=== PATIENT | male | born 1985 | race Caucasian/White ===

== ENCOUNTER → 2018-03-27 | Outpatient (CLI) | payer BC ==
--- NOTE | 2018-03-27 10:33 | FL ---
ESOPHOGRAM. HISTORY: Dysphagia Esophagram was performed per the air contrast technique. The patient swallowed barium and effervesce nt crystals without difficulty or delay. Esophageal peristalsis and motility appear to be within normal limits. There is no evidence for filling defect, mass or diverticulum. No hiatal hernia seen. Subsequently single contrast cervical esophagram was performed which fails demonstrate evidence for a spiration penetration or mass. IMPRESSION: Unremarkable study.
== END ==
LOC: RADFLWHC 08:39
PROVIDERS: ATTEND Otolaryngology
DX: R13.10 Dysphagia, unspecified (principal)
CPT/HCPCS: 74220

== ENCOUNTER 2018-04-10 08:05 | Day surgery (SDC) | payer BC ==
[2018-04-09 10:26] VITALS: BMI 37.3
[~2018-04-10 08:05] MED LIST: LIDOCAINE 1% 20 ML VIAL (10MG/ML) FOR IV START INTRADERMA PRN
[2018-04-10 09:17] VITALS: TEMP 98.3
[2018-04-10] MEDS: LACTATED RINGERS 1,000 ML IV SCH ×2 (09:27→10:48)
[2018-04-10] MEDS ORDERED: PROPOFOL 10 MG/ML 20 ML VIAL IV ONE (10:46)
--- NOTE | 2018-04-10 11:17 | P.PCN ---
Date of Procedure: 04/10/18 Procedure(s) Performed: Procedure: Esophagogastroduodenoscopy and biopsy. Preoperative diagnosis: Dysphagia. Postoperative diagnosis: 1. Sliding hiatal hernia with evidence of esophagitis, multiple biopsies obtained to rule out eosinophilic esophagitis. 2. Mild gastritis and duodenitis. 3. Multiple biopsies obtained from the duodenum and antrum. Preparation and sedation: Was provided by anesthesia. Brief clinical history: The patient is a 32-year-old male who is scheduled for this evaluation because of chronic dysphagia. He denies acid reflux and he has no chest pains. No bleeding or weight loss. He is not on any acid suppressive therapy at this time. Procedure: With the patient on his left lateral decubitus position and after informed consent and adequate sedation, I passed the Olympus-GIF 160 video upper endoscope through the cricopharyngeus down the esophagus. GE junction was around 40 cm from the incisors and there was 1-2 cm sliding hiatal hernia. The esophagus showed mild corrugations and superficial linear erosions raising the possibility of reflux esophagitis versus eosinophilic esophagitis. There were no strictures. No [place]'s esophagus. The endoscope was then passed into the stomach which was insufflated with air and inspected in detail including the retroflex view in the cardia. There was some mottling and erythema in the antrum but no ulcers or erosions. Pyloric channel did not show any ulcers. Duodenal bulb, post bulbar area and descending duodenum showed minimal mottling and erythema with no ulcers or bleeding. I obtained biopsies from the duodenum, antrum and esophagus before the endoscope was withdrawn. The patient tolerated the procedure well. Plan: The patient was reassured. Will await biopsy results. He Will follow-up in the office and I will keep you updated on his progress. He will follow up with you as planned.
[2018-04-10 11:27] VITALS: BP 110/67; PULSE 67; RESP 18
== END 2018-04-10 11:59 | disposition home or self-care (01) ==
LOC: ORWHC2ENDO 08:05
DX: K29.50 Unspecified chronic gastritis without bleeding (principal); K29.80 Duodenitis without bleeding; K44.9 Diaphragmatic hernia without obstruction or gangrene; I10 Essential (primary) hypertension; K21.0 Gastro-esophageal reflux disease with esophagitis; Z79.899 Other long term (current) drug therapy
CPT/HCPCS: 88305; 43239; J2704

== ENCOUNTER → 2018-06-11 | Outpatient (CLI) | payer BC ==
--- NOTE | 2018-06-11 15:06 | XR ---
EXAMINATION TYPE: XR lumbar spine 2 or 3V DATE OF EXAM: 06/11/2018 CLINICAL HISTORY: Chronic low back pain TECHNIQUE: Frontal and lateral images of the lumbar spine are obtained. COMPARISON: None FINDINGS: There are 5 lumbar type vertebral bodies identified. The lumbar spine shows satisfactory alignment without evidence of acute fracture or dislocation. Vertebral body heights are within normal limits. There is mild disc space narrowing L4-L5 and L5-S1 levels. The overlying soft tissue appear s unremarkable. IMPRESSION: As above.
== END | disposition home or self-care (01) ==
LOC: RADXRMAIN 14:37
PROVIDERS: ATTEND Family Medicine
DX: M48.07 Spinal stenosis, lumbosacral region (principal)
CPT/HCPCS: 72100

== ENCOUNTER 2018-06-13 11:07 | Observation (INO) | payer BC ==
[2018-06-13] MEDS ORDERED: methylPREDNISolone SOD SUCCI 125 MG/2 ML VIAL IV STA (12:05)
[2018-06-13] MEDS ORDERED: KETOROLAC 30 MG/ML 1 ML VIAL IVP STA (12:06)
[2018-06-13] MEDS ORDERED: ORPHENADRINE 30 MG/ML 2 ML VIAL IVP STA (12:06)
--- NOTE | 2018-06-13 12:12 | ED ---
Back Pain HPI - General Chief Complaint: Back Pain/Injury Stated Complaint: back injury Time Seen by Provider: 06/13/18 11:37 Source: patient, RN notes reviewed - History of Present Illness Initial Comments: This is a 32-year-old male with a history of lumbar disc disease for about the last year secondary to an injury while swinging a golf club who states he's been doing physical therapy but over last 4 days she's had increased pain with today being the worse she states is burning pain that goes down both legs mostly in the left however he states when he got this morning he had numbness of both legs but no urinary or fecal incontinence. He states he can walk but when he is upright for a short period time he has increased pain. He does state that he had recently started doing loadbearing in his physical therapy may be when everything started. He does have an MRI scheduled in the near future he does not recall what date. He does not recall anything new coughing sneezing bending stretching or other modifying factors at may have triggered this. MD Complaint: back pain - Related Data Home Medications Medication Instructions Recorded Confirmed Fexofenadine HCl [Nu Allergy] 180 mg PO DAILY 04/09/18 06/13/18 Metoprolol Tartrate [Lopressor] 50 mg PO HS 04/09/18 06/13/18 Metoprolol Tartrate [Lopressor] 100 mg PO DAILY 04/09/18 06/13/18 Pantoprazole Sodium 40 mg PO BID 06/13/18 06/13/18 methylPREDNISolone [Medrol Dose See Taper PO DIRECTED 06/13/18 06/13/18 Pack] Allergies Allergy/AdvReac Type Severity Reaction Status Date / Time soy Allergy Unknown Verified 06/13/18 12:25 wheat Allergy Unknown Verified 06/13/18 12:25 Review of Systems ROS Statement: Those systems with pertinent positive or pertinent negative responses have been documented in the HPI. ROS Other: All systems not noted in ROS Statement are negative. Past Medical History Past Medical History: GERD/Reflux, Hypertension Additional Past Medical History / Comment(s): OCCASIONAL TACHYCARDIA , TROUBLE SWALLOWING, Herniated Disk History of Any Multi-Drug Resistant Organisms: None Reported Past Surgical History: No Surgical Hx Reported Past Anesthesia/Blood Transfusion Reactions: No Reported Reaction Additional Past Anesthesia/Blood Transfusion Reaction / Comment(s): FIRST ANESTHETIC Past Psychological History: No Psychological Hx Reported Smoking Status: Never smoker Past Alcohol Use History: None Reported Past Drug Use History: None Reported - Past Family History Mother Family Medical History: Cancer Additional Family Medical History / Comment(s): SKIN CANCER Father Family Medical History: Cancer, Deep Vein Thrombosis (DVT) Additional Family Medical History / Comment(s): SKIN CANCER , General Exam - General Exam Comments Initial Comments: This a well-developed well-nourished awake alert oriented 3 male General appearance: alert, anxious, in distress Head exam: Present: atraumatic, normocephalic, normal inspection Eye exam: Present: normal appearance, PERRL, EOMI. Absent: scleral icterus, conjunctival injection, periorbital swelling ENT exam: Present: normal exam, mucous membranes moist Neck exam: Present: normal inspection. Absent: tenderness, meningismus, lymphadenopathy Respiratory exam: Present: normal lung sounds bilaterally. Absent: respiratory distress, wheezes, rales, rhonchi, stridor Cardiovascular Exam: Present: regular rate, normal rhythm, normal heart sounds. Absent: systolic murmur, diastolic murmur, rubs, gallop, clicks GI/Abdominal exam: Present: soft, normal bowel sounds. Absent: distended, tenderness, guarding, rebound, rigid, bruit, pulsatile mass Extremities exam: Present: normal inspection, full ROM, normal capillary refill. Absent: tenderness, pedal edema, joint swelling, calf tenderness Back exam: Present: normal inspection, tenderness, paraspinal tenderness, other (Tennis over the left SI joint and over both superior gluteus muscles at the sciatic outlet.). Absent: full ROM, CVA tenderness (R), CVA tenderness (L), vertebral tenderness, rash noted Neurological exam: Present: alert, oriented X3, CN II-XII intact. Absent: motor sensory deficit Psychiatric exam: Present: normal affect, normal mood Skin exam: Present: warm, dry, intact, normal color. Absent: rash Course Vital Signs 06/13/18 06/13/18 11:18 13:55 Temperature 97.7 F 97.0 F L Pulse Rate 84 60 Respiratory 20 18 Rate Blood Pressure 161/102 115/69 O2 Sat by Pulse 99 98 Oximetry Medical Decision Making - Medical Decision Making I did reevaluate patient on multiple occasions he is getting so see minimal relief in his pain when he tries get up right in a horizontal position he feels improved but a upright position he has severe pain I did discuss the case with him and his family and with Dr. Madera patient will be admitted with rectal spine consultation. - Lab Data Result diagrams: 06/13/18 12:05 Lab Results 06/13/18 Range/Units 12:05 Sodium 141 (137-145) mmol/L Potassium 4.6 (3.5-5.1) mmol/L Chloride 106 (98-107) mmol/L Carbon Dioxide 26 (22-30) mmol/L Anion Gap 9 mmol/L BUN 17 (9-20) mg/dL Creatinine 0.80 (0.66-1.25) mg/dL Est GFR (CKD-EPI)AfAm >90 (>60 ml/min/1.73 sqM) Est GFR (CKD-EPI)NonAf >90 (>60 ml/min/1.73 sqM) Glucose 111 H (74-99) mg/dL Calcium 9.6 (8.4-10.2) mg/dL Magnesium 2.1 (1.6-2.3) mg/dL Total Bilirubin 0.6 (0.2-1.3) mg/dL AST 37 (17-59) U/L ALT 67 (21-72) U/L Alkaline Phosphatase 44 (38-126) U/L Total Protein 7.6 (6.3-8.2) g/dL Albumin 4.5 (3.5-5.0) g/dL - Radiology Data Radiology results: report reviewed (I did review the imaging and report patient does demonstrate a CAT scan large central disc calcification at L4 5 severe compression of the thecal sac appears partially calcified likely nerve root impingement also large left paracentral disc herniation at L5 to S1 severe compression of the thecal sac probable nerve root impingement), image reviewed Disposition Clinical Impression: Mechanical back pain, Degeneration of intervertebral disc, Failure of outpatient treatment Disposition: ADMITTED IP TO THIS [facility] Condition: Stable Referrals: Etienne Davis MD [Primary Care Provider] - 1-2 days
[2018-06-13 12:39] LABS: ALT 67 U/L (21-72); AST 37 U/L (17-59); Albumin 4.5 g/dL (3.5-5.0); Alkaline Phosphatase 44 U/L (38-126); Anion Gap 9 mmol/L; Blood Urea Nitrogen 17 mg/dL (9-20); Calcium 9.6 mg/dL (8.4-10.2); Carbon Dioxide 26 mmol/L (22-30); Chloride 106 mmol/L (98-107); Glucose 111 mg/dL (74-99); Magnesium 2.1 mg/dL (1.6-2.3); Potassium 4.6 mmol/L (3.5-5.1); Sodium 141 mmol/L (137-145); Total Bilirubin 0.6 mg/dL (0.2-1.3); Total Protein 7.6 g/dL (6.3-8.2)
--- NOTE | 2018-06-13 14:01 | CT ---
EXAMINATION TYPE: CT lumbar spine wo con DATE OF EXAM: 06/13/2018 1:32 PM COMPARISON: Lower back pain HISTORY: Lower back pain worsening after physiotherapy. CT DLP: 1262 mGycm Automated exposure control for dose reduction was used. Unenhanced CT of the lumbar spine was performed. Bone and soft tissue window settings are submitted as well as coronal and sagittal reconstructions. L1-L2: Normal disc space height. No disc herniation protrusion or central stenosis. No facet joint arthropathy. No evidence for foraminal encroachment. L2-L3: Normal disc space height. No disc herniation protrusion or central stenosis. No facet joint arthropathy. No evidence for foraminal encroachment. L3-L4: Mild central disc bulging. L4-L5: There is a very large central disc herniation L4-L5 with severe compression of the thecal sac and probable bilateral foraminal encroachment. Appears partially calcified and has a disc osteophyte complex. Severe central stenosis and bilateral foraminal encroachment. Recommend MRI. L5-S1: There is a large partially calcified left paracentral disc herniation with disc osteophyte com plex L5-S1 with severe compression of thecal sac and probable left foraminal encroachment. Facet arth ropathy noted. IMPRESSION: 1. Large central disc calcification L4-L5 severe compression of the thecal sac and appears partially calcified. There likely is nerve root impingement. Cannot adequately see the spinal canal or nerve ro ots by CAT scan. MRI recommended. 2. Large left paracentral disc herniation L5-S1 with severe compression of thecal sac and probable ne rve root impingement. This also appears partially calcified. MRI recommended.
[2018-06-13] MEDS ORDERED: LORazepam 2 MG/ML INJ IV PRN (16:31)
[2018-06-13] MEDS ORDERED: NALOXONE 0.4 MG/ML 1 ML VIAL IV PRN (16:31)
[2018-06-13] MEDS: SODIUM CHLORIDE 0.9% 1,000 ML IV SCH (17:54)
[2018-06-13] MEDS: PANTOPRAZOLE 40 MG TABLET PO SCH (17:55)
[2018-06-13] MEDS: HYDROmorphone 1 MG/ML 1 ML SYRINGE IVP PRN (17:59)
[2018-06-13] MEDS: METOPROLOL TARTRATE 50 MG TAB PO SCH (20:09)
--- NOTE | 2018-06-13 20:44 | P.HPIM ---
History of Present Illness H&P Date: 06/13/18 Chief Complaint: back pain This is a 32-year-old male with a history of lumbar disc disease for about the last year secondary to an injury while swinging a golf club who states he's been doing physical therapy but over last 4 days she's had increased pain with today being the worse she states is burning pain that goes down both legs mostly in the left however he states when he got this morning he had numbness of both legs but no urinary or fecal incontinence. He states he can walk but when he is upright for a short period time he has increased pain. He does state that he had recently started doing loadbearing in his physical therapy may be when everything started. He does have an MRI scheduled in the near future he does not recall what date. He does not recall anything new coughing sneezing bending stretching or other modifying factors at may have triggered this. Review of Systems Constitutional: Denies fever, Denies weight loss Eyes: denies blurred vision, denies loss of vision Ears: deny: ear discharge Cardiovascular: Denies chest pain, Denies dyspnea on exertion, Denies shortness of breath Respiratory: Denies cough with sputum, Denies wheezing Gastrointestinal: Denies abdominal pain, Denies nausea, Denies vomiting Genitourinary: Denies dysuria, Denies hematuria Musculoskeletal: Reports gait dysfunction, Reports low back pain, Reports shooting leg pain Integumentary: Denies darkening of skin, Denies rash Neurological: Reports gait dysfunction, Reports tingling, Reports weakness, Denies confusion Psychiatric: Denies anxiety, Denies depression Endocrine: Denies cold intolerance, Denies heat intolerance Hematologic/Lymphatic: Denies easy bruising, Denies lymphadenopathy Past Medical History Past Medical History: GERD/Reflux, Hypertension Additional Past Medical History / Comment(s): OCCASIONAL TACHYCARDIA , had egd w / bx 10 had hx of some difficulty swallowing, pt stated he has eosinophilic esophagitis, hiatal hernia.Herniated Disk, "boarderline fatty liver ", concussion when younger. pt stated the his dad, grandfather and brother have a hereditary blood clotting disorder , but pt was never tested for it. History of Any Multi-Drug Resistant Organisms: None Reported Past Surgical History: No Surgical Hx Reported Additional Past Surgical History / Comment(s): egd w/bx 04-09-18 Past Anesthesia/Blood Transfusion Reactions: No Reported Reaction Additional Past Anesthesia/Blood Transfusion Reaction / Comment(s): first anesthesia was with egd Smoking Status: Never smoker - Past Family History Mother Family Medical History: Cancer Additional Family Medical History / Comment(s): SKIN CANCER Father Family Medical History: Blood Disorder, Cancer, Deep Vein Thrombosis (DVT) Additional Family Medical History / Comment(s): SKIN CANCER , "hereditary clotting factor disorder"(dad, grand father and brother have it) pt has never been tested for it Medications and Allergies Home Medications Medication Instructions Recorded Confirmed Type Fexofenadine HCl [Nu Allergy] 180 mg PO DAILY 04/09/18 06/13/18 History Metoprolol Tartrate [Lopressor] 50 mg PO HS 04/09/18 06/13/18 History Metoprolol Tartrate [Lopressor] 100 mg PO DAILY 04/09/18 06/13/18 History Pantoprazole Sodium 40 mg PO BID 06/13/18 06/13/18 History methylPREDNISolone [Medrol Dose See Taper PO DIRECTED 06/13/18 06/13/18 History Pack] Allergies Allergy/AdvReac Type Severity Reaction Status Date / Time soy Allergy Unknown Verified 06/13/18 12:25 wheat Allergy Unknown Verified 06/13/18 12:25 Physical Exam Vitals: Vital Signs Temp Pulse Resp BP BP Pulse Ox 06/13/18 19:00 97.6 F 15 116/76 95 06/13/18 17:09 98.0 F 67 16 116/70 97 06/13/18 16:00 16 06/13/18 13:55 97.0 F L 60 18 115/69 98 06/13/18 11:18 97.7 F 84 20 161/102 99 Intake and Output 06/13/18 06/13/18 06/13/18 06:59 14:59 22:59 Intake Total 240 Balance 240 Intake: Oral 240 Other: Voiding Method Toilet # Voids 1 Weight 122.47 kg This a well-developed well-nourished awake alert oriented 3 male General appearance: alert, anxious, in distress Head exam: Present: atraumatic, normocephalic, normal inspection Eye exam: Present: normal appearance, PERRL, EOMI. Absent: scleral icterus, conjunctival injection, periorbital swelling ENT exam: Present: normal exam, mucous membranes moist Neck exam: Present: normal inspection. Absent: tenderness, meningismus, lymphadenopathy Respiratory exam: Present: normal lung sounds bilaterally. Absent: respiratory distress, wheezes, rales, rhonchi, stridor Cardiovascular Exam: Present: regular rate, normal rhythm, normal heart sounds. Absent: systolic murmur, diastolic murmur, rubs, gallop, clicks GI/Abdominal exam: Present: soft, normal bowel sounds. Absent: distended, tenderness, guarding, rebound, rigid, bruit, pulsatile mass Extremities exam: Present: normal inspection, full ROM, normal capillary refill. Absent: tenderness, pedal edema, joint swelling, calf tenderness Back exam: Present: normal inspection, tenderness, paraspinal tenderness, other (Tennis over the left SI joint and over both superior gluteus muscles at the sciatic outlet.). Absent: full ROM, CVA tenderness (R), CVA tenderness (L), vertebral tenderness, rash noted Neurological exam: Present: alert, oriented X3, CN II-XII intact. Absent: motor sensory deficit Psychiatric exam: Present: normal affect, normal mood Skin exam: Present: warm, dry, intact, normal color. Absent: rash Results CBC & Chem 7: 06/13/18 12:05 Labs: Abnormal Lab Results - Last 24 Hours (Table) 06/13/18 Range/Units 12:05 Glucose 111 H (74-99) mg/dL Thrombosis Risk Factor Assmnt - Choose All That Apply Any of the Below Risk Factors Present?: No Assessment and Plan Assessment: 1. Mechanical back pain, 2. Degeneration of intervertebral disc, 3. Failure of outpatient treatment 4. HTN 5. GERD 6. DVT prophylaxis - start patient on IV Solumedrol, pain control in form of IV dilaudid - PT/OT eval and tx - Orthopedic consult CODE STATUS; full code
[2018-06-13] MEDS: methylPREDNISolone SOD SUCCI 40 MG/ML 1 ML VIAL IV SCH (23:52)
[2018-06-14] MEDS: HYDROmorphone 1 MG/ML 1 ML SYRINGE IVP PRN (00:25)
[2018-06-14] MEDS: ONDANSETRON 4 MG/2 ML VIAL IVP PRN ×2 (01:18→08:39)
[2018-06-14 05:49] LABS: Glucose,Whole Blood 139 mg/dL (75-99)
--- NOTE | 2018-06-14 07:10 | CT ---
EXAMINATION TYPE: CT brain dulce danielson con DATE OF EXAM: 06/14/2018 COMPARISON: NONE HISTORY: Fall CT DLP: 1186.1 mGycm Automated exposure control for dose reduction was used. TECHNIQUE: CT scan of the head and cervical spine are performed without contrast. FINDINGS: BRAIN: Central structures are midline. There is no evidence of hydrocephalus. No acute focal lesion, mass effect or midline shift is seen. I do not see evidence of intracranial blood. There is bilateral maxillary sinus mucosal disease. There is deviation of the nasal septum towards th e right. No septal fracture is seen. The mastoid air cells are clear. The bony calvarium is intact. IMPRESSION: 1. NO ACUTE INTRACRANIAL ABNORMALITY. 2. BILATERAL MAXILLARY SINUS MUCOSAL DISEASE. CERVICAL SPINE: Visualized portions of the lungs are clear. Prevertebral soft tissues are normal. There is a mild reversal of the normal cervical lordosis. Alignment is maintained. Atlantoaxial relat ionships are normal. There is mild degenerative change at C5-6 and C6-7. There is hypertrophic change in the right uncover tebral joint at C2-3 causing intervertebral foraminal narrowing at this level. The facet and uncovert ebral joints are otherwise unremarkable. No definite protrusion is seen no fracture is identified. IMPRESSION: 1. NO ACUTE OSSEOUS ABNORMALITY. 2. MILD DEGENERATIVE CHANGE WITH RIGHT-SIDED INTERVERTEBRAL FORAMINAL NARROWING, C2-3.
[2018-06-14 07:39] LABS: Basophils % (A) 0 %; Eosinophils % (A) 0 %; HCT 46.8 % (39.0-53.0); HGB 15.6 gm/dL (13.0-17.5); Lymphocytes # (A) 2.3 k/uL (1.0-4.8); Lymphocytes % (A) 16 %; MCH 30.2 pg (25.0-35.0); MCHC 33.4 g/dL (31.0-37.0); MCV 90.4 fL (80.0-100.0); Mean Platelet Volume 7.3; Monocytes # (A) 0.5 k/uL (0-1.0); Monocytes % (A) 4 %; Neutrophils # (A) 11.6 k/uL (1.3-7.7); Neutrophils % (A) 80 %; Platelet Count 323 k/uL (150-450); RBC 5.18 m/uL (4.30-5.90); RDW 12.4 % (11.5-15.5); WBC 14.5 k/uL (3.8-10.6)
[2018-06-14 07:53] LABS: Anion Gap 9 mmol/L; Blood Urea Nitrogen 20 mg/dL (9-20); Calcium 9.7 mg/dL (8.4-10.2); Carbon Dioxide 26 mmol/L (22-30); Chloride 105 mmol/L (98-107); Glucose 136 mg/dL (74-99); Potassium 4.6 mmol/L (3.5-5.1); Sodium 140 mmol/L (137-145)
[2018-06-14] MEDS: LORATADINE 10 MG TAB PO SCH (08:39)
[2018-06-14] MEDS: METOPROLOL TARTRATE 50 MG TAB PO SCH ×2 (08:39→20:24)
[2018-06-14] MEDS: PANTOPRAZOLE 40 MG TABLET PO SCH ×2 (08:39→18:05)
[2018-06-14] MEDS: methylPREDNISolone SOD SUCCI 40 MG/ML 1 ML VIAL IV SCH ×2 (08:39→18:10)
[2018-06-14] MEDS: CYCLOBENZAPRINE 10 MG TAB PO PRN ×2 (11:53→22:45)
[2018-06-14] MEDS: GABAPENTIN 100 MG CAP PO SCH ×2 (11:53→20:23)
--- NOTE | 2018-06-14 13:15 | P.PN ---
Subjective Progress Note Date: 06/14/18 Principal diagnosis: Intractable back pain Degenerative intervertebral disc disease This is a 32-year-old male with a history of lumbar disc disease for about the last year secondary to an injury while swinging a golf club who states he's been doing physical therapy but over last 4 days she's had increased pain with today being the worse she states is burning pain that goes down both legs mostly in the left however he states when he got this morning he had numbness of both legs but no urinary or fecal incontinence. He states he can walk but when he is upright for a short period time he has increased pain. He does state that he had recently started doing loadbearing in his physical therapy may be when everything started. He does have an MRI scheduled in the near future he does not recall what date. Patient is admitted for pain control and IV Solu-Medrol; orthopedic consultation is in place; patient is scheduled for an MRI 06/14/2018 Patient is seen and evaluated in the room at bedside; continues to complain of severe back pain and inability to get out of bed; patient is evaluated by orthopedic and further recommendations are pending MRI; pain management saw patient and patient is recommended follow-up with pain management as an outpatient. Objective - Vital Signs Vital signs: Vital Signs Temp 97.6 F 06/14/18 07:20 Pulse 67 06/14/18 07:20 Resp 18 06/14/18 07:20 BP 142/72 06/14/18 07:20 Pulse Ox 98 06/14/18 07:20 Intake & Output 06/13/18 06/14/18 06/14/18 18:59 06:59 18:59 Intake Total 240 340 Output Total 400 Balance 240 -60 Weight 122.47 kg 122.47 kg Intake: Oral 240 240 Other 100 Output: Urine 400 Other: Voiding Method Toilet Toilet # Voids 1 1 - Exam - Constitutional General appearance: Present: average body habitus, cooperative, no acute distress - EENT Eyes: Present: anicteric sclerae, EOMI, PERRLA, normal appearance ENT: Present: hearing grossly normal, normal oropharynx Ears: bilateral: normal - Neck Neck: Present: normal ROM. Absent: lymphadenopathy, rigidity, thyromegaly Carotids: negative: bruit present Thyroid: bilateral: normal size, negative: enlarged, nodule - Respiratory Respiratory: bilateral: CTA, negative: rales, rhonchi, wheezing - Cardiovascular Rhythm: regular Heart sounds: normal: S1, S2 Abnormal Heart Sounds: Absent: systolic murmur, diastolic murmur - Gastrointestinal General gastrointestinal: Present: normal bowel sounds, soft. Absent: distended , organomegaly, tenderness - Genitourinary Genitourinary Comment(s): deferred - Integumentary Integumentary: Present: normal turgor. Absent: jaundiced, rash, ulcer - Neurologic Neurologic: Present: CNII-XII intact. Absent: focal deficits - Musculoskeletal Musculoskeletal: Present: gait normal, strength equal bilaterally - Psychiatric Psychiatric: Present: A&O x's 3, appropriate affect, intact judgment & insight - Labs CBC & Chem 7: 06/14/18 06:38 06/14/18 06:38 Labs: Abnormal Lab Results - Last 24 Hours (Table) 06/13/18 06/14/18 06/14/18 Range/Units 12:05 05:48 06:38 WBC 14.5 H (3.8-10.6) k/uL Neutrophils # 11.6 H (1.3-7.7) k/uL Glucose 111 H (74-99) mg/dL POC Glucose (mg/dL) 139 H (75-99) mg/dL 06/14/18 Range/Units 06:38 WBC (3.8-10.6) k/uL Neutrophils # (1.3-7.7) k/uL Glucose 136 H (74-99) mg/dL POC Glucose (mg/dL) (75-99) mg/dL Assessment and Plan Assessment: 1. Mechanical back pain, 2. Degeneration of intervertebral disc, 3. Failure of outpatient treatment 4. HTN 5. GERD 6. DVT prophylaxis - start patient on IV Solumedrol, pain control in form of IV dilaudid - PT/OT eval and tx - Orthopedic consult CODE STATUS; full code Time with Patient: Greater than 30
--- NOTE | 2018-06-14 13:44 | MR ---
MR lumbar spine wo con herniated disc L4/5 L5/S1, Abnormal CT Multiplanar, multiecho imaging of the lumbar spine was obtained without contrast on a 3 Lucy magnet. REFERENCE:None. FINDINGS: Prevertebral soft tissues are normal. Vertebral body height and alignment are maintained. Cord signal is maintained. The conus ends normall y at the level of the superior endplate of L1. At T12-L1, no definite abnormality is seen. At L1-2, there are mild hypertrophic changes within the facets. At L2-3, no definite abnormality is seen. At L3-4, there is mild hypertrophic change and capsulitis within the facets. At L4-5, There is a broad-based disc protrusion causing bilateral intervertebral foraminal narrowing. This is associated with mild central canal stenosis. There is mild hypertrophic change and capsuliti s within the facets. At L5-S1, there is a left paracentral disc protrusion measuring 5.2 x 9.5 mm. This is deforming the t hecal sac. This appears to spare the exiting L5 nerve root but certainly impinges upon the traversing S1 nerve root on the left. IMPRESSION: 1. BROAD-BASED DISC PROTRUSION, L4-5 MILD CENTRAL CANAL STENOSIS AND BILATERAL INTERVERTEBRAL FORAMIN AL STENOSIS. 2. LEFT PARACENTRAL DISC PROTRUSION, L5-S1 SPARING THE EXITING L5 NERVE ROOT IMPINGING UPON THE TRAVE RSING S1 NERVE ROOT ON THE LEFT.
[2018-06-14] MEDS: SODIUM CHLORIDE 0.9% 1,000 ML IV SCH (18:10)
[2018-06-15] MEDS: methylPREDNISolone SOD SUCCI 40 MG/ML 1 ML VIAL IV SCH ×3 (00:38→15:49)
[2018-06-15] MEDS: PANTOPRAZOLE 40 MG TABLET PO SCH ×2 (08:04→15:49)
[2018-06-15] MEDS: GABAPENTIN 100 MG CAP PO SCH ×2 (08:04→20:04)
[2018-06-15] MEDS: LORATADINE 10 MG TAB PO SCH (08:04)
[2018-06-15] MEDS: METOPROLOL TARTRATE 50 MG TAB PO SCH ×2 (08:04→20:04)
[2018-06-15] MEDS: CYCLOBENZAPRINE 10 MG TAB PO PRN ×2 (09:19→22:38)
--- NOTE | 2018-06-15 10:09 | P.CNOR ---
History of Present Illness - HPI Consult date: 06/15/18 Consult reason: low back pain, other (Lower extremity radiculopathy and weakness ) History of present illness: Patient's very pleasant 32-year-old gentleman who has been unable and related [place] the past few days. He is having severe pain at his back and bilateral lower extremity is worse on the right and left. He says that he has been having issues in his back for the past year and a half since playing golf he felt an acute pain in his back and some burning in numbness tingling his lateral lower extremity is. He manage this with chiropractic manipulation and therapy over time. Approximately 6 months ago he started having worsening symptoms and was involved in physical therapy and was making some progress with the stretching but when he went to start doing further strengthening exercises had acute pain in late May and has been having worsening since to the point where he is now unable to ambulate and get to the bathroom on his own. He normally works as a preacher and has been doing his regular duties until this most recent episode in the past few couple weeks. Is normally community ambulate or down any assistance but does limit his activities and lifting his daughters at home due to his pain is back. He is not having changes in bowel bladder function he denies any fevers chills denies any new injury. Review of Systems As stated per HPI. Denies any chest pain shortness breath. Denies any bladder function. Denies any new injury. Past Medical History Past Medical History: GERD/Reflux, Hypertension Additional Past Medical History / Comment(s): OCCASIONAL TACHYCARDIA , had egd w / bx 8 had hx of some difficulty swallowing, pt stated he has eosinophilic esophagitis, hiatal hernia.Herniated Disk, "boarderline fatty liver ", concussion when younger. pt stated the his dad, grandfather and brother have a hereditary blood clotting disorder , but pt was never tested for it. History of Any Multi-Drug Resistant Organisms: None Reported Past Surgical History: No Surgical Hx Reported Additional Past Surgical History / Comment(s): egd w/bx 04-09-18 Past Anesthesia/Blood Transfusion Reactions: No Reported Reaction Additional Past Anesthesia/Blood Transfusion Reaction / Comm: first anesthesia was with egd Smoking Status: Never smoker - Past Family History Mother Family Medical History: Cancer Additional Family Medical History / Comment(s): SKIN CANCER Father Family Medical History: Blood Disorder, Cancer, Deep Vein Thrombosis (DVT) Additional Family Medical History / Comment(s): SKIN CANCER , "hereditary clotting factor disorder"(dad, grand father and brother have it) pt has never been tested for it Medications and Allergies Home Medications Medication Instructions Recorded Confirmed Type Fexofenadine HCl [Nu Allergy] 180 mg PO DAILY 04/09/18 06/13/18 History Metoprolol Tartrate [Lopressor] 50 mg PO HS 04/09/18 06/13/18 History Metoprolol Tartrate [Lopressor] 100 mg PO DAILY 04/09/18 06/13/18 History Pantoprazole Sodium 40 mg PO BID 06/13/18 06/13/18 History methylPREDNISolone [Medrol Dose See Taper PO DIRECTED 06/13/18 06/13/18 History Pack] Allergies Allergy/AdvReac Type Severity Reaction Status Date / Time soy Allergy Unknown Verified 06/13/18 12:25 wheat AdvReac Mild Unknown Verified 06/14/18 13:49 Physical Examination Osteopathic Statement: *. No significant issues noted on an osteopathic structural exam other than those noted in the History and Physical/Consult. - L Spine: dermatomal strength & reflexes bilateral Strength: hip flexion: 5/5 (His severe pain with trying to flex his hips but he is able to that with good strength. There is no pain with internal/external rotation of his hips. His back is nontender to palpation he does have some paravertebral spasm. He has weakness with dorsal flexion on the right side with about 3 out of 5 strength in dorsiflexion and EHL on the right. He has 5 out of 5 strength bilateral bilateral plantar flexion. Left lower extremity has 5 out of 5 strength dorsal flexion. No clonus. No hyperreflexia.) Results - Labs Labs: H & H 06/14/18 Range/Units 06:38 Hgb 15.6 (13.0-17.5) gm/dL Hct 46.8 (39.0-53.0) % Result Diagrams: 06/14/18 06:38 06/14/18 06:38 - Diagnostic results Lumbar MRI with/without contrast: report reviewed, image reviewed (Computed tomography scan of lumbar spine as well as MRI of lumbar spine report and images are reviewed. He has a massive central disc herniation at L4 5 with severe central and bilateral foraminal stenosis at L5-S1 there is a large left paracentral disc herniation with left foraminal stenosis. There is calcification around the herniations themselves indicating some chronicity to them.) CT Scan - lumbar: report reviewed, image reviewed CT scan - lumbar myelogram: report reviewed Assessment and Plan Assessment: Massive disc herniation L4 5 Left paracentral disc herniation L5-S1 Bilateral lower extremity radiculopathy Right lower extremity weakness with dorsiflexion Low back pain Inability to ambulate Plan: Massive disc herniation L4 5 Left paracentral disc herniation L5-S1 Bilateral lower extremity radiculopathy Right lower extremity weakness with dorsiflexion Low back pain Inability to ambulate Patient has had acute worsening of his low back symptoms and to his lower extremity is. He has some chronic weakness in his right lower extremity I don' t think that the herniations or new. He has significant calcification around the herniations is seen on his computed tomography scan to indicate that this is been a chronic nature for him. It is likely that the herniations started about a year and a half ago given the amount of bone growth around the herniations cells. He had an acute exacerbation and may have a new annular fissure or extended the herniation itself. He is not having bowel bladder changes and does not have evidence of any cauda equina syndrome. He is having weakness of his right lower extremity which is somewhat chronic. He feels that he is making some benefit with his conservative treatment with his Neurontin Flexeril and steroid at this point. I like to see if he is able to continue to increase his mobility with medication and management. We have and consult in interventional pain management consider epidural steroid injections as I think this would give him some acute relief and hopefully enable him to be returned home to continue management on an outpatient basis. I like him to continue interventional pain management as able. He is a candidate for surgical intervention in the form of decompression at L4 5 and L5-S1 with discectomy with considerations of fusion. I explained this to him and he is hopeful to avoid surgical intervention as long as possible and is hopeful to continue conservative management at this point.
--- NOTE | 2018-06-15 14:05 | P.PN ---
Subjective Progress Note Date: 06/15/18 Principal diagnosis: Intractable back pain Degenerative intervertebral disc disease This is a 32-year-old male with a history of lumbar disc disease for about the last year secondary to an injury while swinging a golf club who states he's been doing physical therapy but over last 4 days she's had increased pain with today being the worse she states is burning pain that goes down both legs mostly in the left however he states when he got this morning he had numbness of both legs but no urinary or fecal incontinence. He states he can walk but when he is upright for a short period time he has increased pain. He does state that he had recently started doing loadbearing in his physical therapy may be when everything started. He does have an MRI scheduled in the near future he does not recall what date. Patient is admitted for pain control and IV Solu-Medrol; orthopedic consultation is in place; patient is scheduled for an MRI 06/14/2018 Patient is seen and evaluated in the room at bedside; continues to complain of severe back pain and inability to get out of bed; patient is evaluated by orthopedic and further recommendations are pending MRI; pain management saw patient and patient is recommended follow-up with pain management as an outpatient. 06/15/2018 Patient is seen and evaluated in the room at bedside for follow-up; MRI of the spine showed massive disc herniation L4-5, left paracentral disc herniation L5- S1 Patient continues to have bilateral lower extremity radiculopathy with right lower extremity weakness with dorsiflexion and inability to ambulate; patient remains on conservative treatment with Neurontin, Flexeril and steroids; orthopedic has seen the patient and is recommended to continue current treatment ; patient is a surgical candidate in form of decompression at L4-5 and L5-S1 with discectomy on fusion; plan would be to schedule surgery of conservative treatment fails; pain management and anesthesiology has been consulted for epidural steroid injections Objective - Vital Signs Vital signs: Vital Signs Temp 97.5 F L 06/15/18 07:16 Pulse 60 06/15/18 07:16 Resp 16 06/15/18 07:16 BP 106/62 06/15/18 07:16 Pulse Ox 93 L 06/15/18 07:16 Intake & Output 06/14/18 06/15/18 06/15/18 18:59 06:59 18:59 Intake Total 580 100 Output Total 1000 300 Balance -420 -300 100 Weight 122.47 kg Intake: Oral 480 Other 100 100 Output: Urine 1000 300 Other: Voiding Method Toilet Toilet Toilet # Voids 2 - Exam - Constitutional General appearance: Present: average body habitus, cooperative, no acute distress - EENT Eyes: Present: anicteric sclerae, EOMI, PERRLA, normal appearance ENT: Present: hearing grossly normal, normal oropharynx Ears: bilateral: normal - Neck Neck: Present: normal ROM. Absent: lymphadenopathy, rigidity, thyromegaly Carotids: negative: bruit present Thyroid: bilateral: normal size, negative: enlarged, nodule - Respiratory Respiratory: bilateral: CTA, negative: rales, rhonchi, wheezing - Cardiovascular Rhythm: regular Heart sounds: normal: S1, S2 Abnormal Heart Sounds: Absent: systolic murmur, diastolic murmur - Gastrointestinal General gastrointestinal: Present: normal bowel sounds, soft. Absent: distended , organomegaly, tenderness - Genitourinary Genitourinary Comment(s): deferred - Integumentary Integumentary: Present: normal turgor. Absent: jaundiced, rash, ulcer - Neurologic Neurologic: Present: CNII-XII intact. Absent: focal deficits - Musculoskeletal Musculoskeletal: Present: gait normal, strength equal bilaterally - Psychiatric Psychiatric: Present: A&O x's 3, appropriate affect, intact judgment & insight - Labs CBC & Chem 7: 06/14/18 06:38 06/14/18 06:38 Assessment and Plan Assessment: 1. Mechanical back pain, 2. Degeneration of intervertebral disc, 3. Failure of outpatient treatment 4. HTN 5. GERD 6. DVT prophylaxis - start patient on IV Solumedrol, pain control in form of IV dilaudid - PT/OT eval and tx - Orthopedic consult CODE STATUS; full code
[2018-06-15] MEDS: SODIUM CHLORIDE 0.9% 1,000 ML IV SCH (20:05)
[2018-06-16] MEDS: methylPREDNISolone SOD SUCCI 40 MG/ML 1 ML VIAL IV SCH ×3 (00:02→15:59)
[2018-06-16] MEDS: PANTOPRAZOLE 40 MG TABLET PO SCH ×2 (07:41→15:59)
[2018-06-16] MEDS: GABAPENTIN 100 MG CAP PO SCH (07:42)
[2018-06-16] MEDS: LORATADINE 10 MG TAB PO SCH (07:42)
[2018-06-16] MEDS: METOPROLOL TARTRATE 50 MG TAB PO SCH (07:42)
[2018-06-16] MEDS: CYCLOBENZAPRINE 10 MG TAB PO PRN ×2 (07:56→15:59)
[2018-06-16 09:26] VITALS: RESP 16
--- NOTE | 2018-06-16 09:59 | P.PAINCN ---
History of Present Illness - Reason for Consult Consult date: 06/16/18 - History of Present Illness This is a 32 years old male with a chronic history of severe low back pain, started a year and a half ago, the pain intensity increases over the last couple of weeks, and currently the pain is intense interfere with his ability to ambulate, the patient failed medical management as an outpatient, and he was admitted because of severe low back pain, the pain is constant and increases with any activity, radiated to the lower extremity bilaterally petites more severe on the right side, the pain associated with numbness and tingling sensation, he feels he is not able to ambulate because of intensity of the pain , he denies any fever or night sweats. Denies any change in the bowel movement or urination, he tried physical therapy on different occasions without any benefit, and he is currently on Flexeril 10 mg 3 times a day and Neurontin 100 mg 3 times a day he gets minimal improvement Past Medical History Past Medical History: GERD/Reflux, Hypertension Additional Past Medical History / Comment(s): OCCASIONAL TACHYCARDIA , had egd w / bx 8 had hx of some difficulty swallowing, pt stated he has eosinophilic esophagitis, hiatal hernia.Herniated Disk, "boarderline fatty liver ", concussion when younger. pt stated the his dad, grandfather and brother have a hereditary blood clotting disorder , but pt was never tested for it. History of Any Multi-Drug Resistant Organisms: None Reported Past Surgical History: No Surgical Hx Reported Additional Past Surgical History / Comment(s): egd w/bx 04-09-18 Past Anesthesia/Blood Transfusion Reactions: No Reported Reaction Additional Past Anesthesia/Blood Transfusion Reaction / Comm: first anesthesia was with egd Smoking Status: Never smoker - Past Family History Mother Family Medical History: Cancer Additional Family Medical History / Comment(s): SKIN CANCER Father Family Medical History: Blood Disorder, Cancer, Deep Vein Thrombosis (DVT) Additional Family Medical History / Comment(s): SKIN CANCER , "hereditary clotting factor disorder"(dad, grand father and brother have it) pt has never been tested for it Medications and Allergies Home Medications Medication Instructions Recorded Confirmed Type Fexofenadine HCl [Nu Allergy] 180 mg PO DAILY 04/09/18 06/13/18 History Metoprolol Tartrate [Lopressor] 50 mg PO HS 04/09/18 06/13/18 History Metoprolol Tartrate [Lopressor] 100 mg PO DAILY 04/09/18 06/13/18 History Pantoprazole Sodium 40 mg PO BID 06/13/18 06/13/18 History methylPREDNISolone [Medrol Dose See Taper PO DIRECTED 06/13/18 06/13/18 History Pack] Allergies Allergy/AdvReac Type Severity Reaction Status Date / Time soy Allergy Unknown Verified 06/13/18 12:25 wheat AdvReac Mild Unknown Verified 06/14/18 13:49 Physical Exam Vitals: Vital Signs Temp Pulse Resp BP Pulse Ox 06/16/18 08:00 96.3 F L 59 L 16 119/76 97 06/16/18 04:00 71 18 06/15/18 23:45 71 18 06/15/18 22:49 98.2 F 71 18 116/73 94 L 06/15/18 16:00 18 06/15/18 15:52 97.8 F 59 L 18 107/65 93 L Intake and Output 06/15/18 06/16/18 06/16/18 22:59 06:59 14:59 Intake Total 200 Balance 200 Intake: Other 200 Other: Voiding Method Toilet Urinal # Voids 2 Physical Examinations : 1-Constitutiona : Cooperative , not in acute distress . 2-HEENT : nech ; supple , no Lymphadenopathy , normal thyroid size . eyes : no ptosis , no icterus, no photophobia . ENT : normal of hearing , normal oropharynx , no Thrush . 3- Respiratory : Chest clear to auscultations Bilaterally , no wheezing , no Rhonchi . 4- Cardiovascular : regular rate and rhythem , S1 , S2 , no S3 , no S4. 5- Gastrointestinal : abdomen soft no tenderness , bowel sounds , no organomegally . 6- Genitourinary : Defferred . 7- neurologic : Cranial nerve II to XII intact , no focal neurological deffecit . 8-psychatric : alert , oriented X 3 , appropriate affect , intact judgment and insight . 9-Lymphatic : no Lymphadenopathy . 10- musculoskeltal : Lumber spine moter stegnth lower extremities , thigh and legs 4/5 Right side , 5/5 Left side deep tendon reflexes : normal Knee Jerk , normal ankle Jerk positive lumber facet Loading Test Range of motion of the lumbar spine Flexion 30 degrees, extension 10 degrees strait leg raising test , positive at 30 degree Fabere test positive RT and positive LT . Positive dysesthesia right lower extremity Results CBC & Chem 7: 06/14/18 06:38 06/14/18 06:38 Comments: MRI lumbar spine L4 5 and L5-S1 disc herniation and foraminal stenosis, L3 4 L4 5 lumbar facet arthropathy Assessment and Plan Plan: Assessment and plan= acute on chronic low back pain with radiation to the lower extremity, lumbar radiculopathy, lumbar disc herniation, lumbar spondylosis with lumbar facet arthropathy Recommend continue the current medication Flexeril 10 mg 3 times a day and Neurontin 100 mg 3 times a day Patient will be good candidate for lumbar epidural steroid injections under fluoroscopy guidance the procedure will be done today Time with Patient: Greater than 30 PQRS Measure Charge Sheet PQRS Narrative: Smoking Status Never smoker Do You Want the Pneumonia Vaccine Up to Date Vaccine AT THIS TIME? Blood Pressure [Right Arm] 119/76 Blood Pressure [Left Arm] 142/72 Blood Pressure 116/70 Pain Intensity [Lower Back] 1 Pain Intensity 0 Pain Scale Used Numeric (1 - 10) Scale Used Numeric (1 - 10) Home Medications: Ambulatory Orders Fexofenadine HCl [Nu Allergy] 180 mg PO DAILY 04/09/18 Metoprolol Tartrate [Lopressor] 50 mg PO HS 04/09/18 Metoprolol Tartrate [Lopressor] 100 mg PO DAILY 04/09/18 Pantoprazole Sodium 40 mg PO BID 06/13/18 methylPREDNISolone [Medrol Dose Pack] See Taper PO DIRECTED 06/13/18
[2018-06-16] MEDS ORDERED: IV FLUID CONTINUATION 1,000 ML IV ONE ×3 (10:09→11:29)
--- NOTE | 2018-06-16 11:22 | P.PCN ---
Date of Procedure: 06/16/18 Procedure(s) Performed: PREOPERATIVE DIAGNOSIS: 1- Lumbar herniated Disc Diseases 2-Lumbar radiculopathy POSTOPERATIVE DIAGNOSIS: Same preoperative diagnosis PROCEDURE 1. Lumbar epidural steroid injection under fluoroscopic guidance at the L4-5 level. 2. Lumbar epidurogram. ANESTHESIA: Local with 1% lidocaine 3 ml and , moderate sedation with intravenous,fentanyle 200 Mcg EBL: Minimal PROCEDURE INDICATION: The patient with low back pain and radiculitis symptoms unresponsive to conservative treatment. Fluoroscopy was used to optimize visualization of the needle placement and to maximize safety. PROCEDURE DESCRIPTION / TECHNIQUE: The patient was seen and identified in the preoperative area. Risks, benefits , complications including but not limited to infections ,bleeding ,allergic reaction to the medications ,nerve damage and not complete pain releife , and alternatives were discussed with the patient. The patient agreed to proceed with the procedure and signed the consent. IV was started, and vital signs were stable. Patient was taken to the OR and time out was completed. The patient was placed in the prone position on procedure table and a pillow was placed under the abdomen to reduce lumbar lordosis. The lumbosacral area was prepped and draped in the usual sterile fashion.ere closely monitored during the procedure. Conscious sedation was used during the procedure to decrease patients anxiety. Vital signs was monitered during the entire procedure. Using anterior-posterior fluoroscopy, the L4-5 interlaminar space was identified and the skin over this site was marked and then infiltrated with 1% lidocaine subcutaneously. Subsequently, a 20-gauge Tuohy epidural needle was inserted and advanced toward the epidural space using the ``Loss of resistance technique and guided by AP and lateral fluoroscopy. The correct needle position in the epidural space was verified with the injection of 2 mL of the water soluble contrast dye Isovue 200 contrast and observing an excellent epidurogram with the epidural spread of the dye, after negative aspiration for blood and CSF and in the absence of paresthesias. Again after negative aspiration, a 6 ml mixture containing 80 mg of Depo-medrol , and 2 ml of preservative free Normal Saline, and 2 ml of preservative free lidocaine 1% solution was injected and a washout of epidurogram was seen. Needle was withdrawn intact, skin was cleansed, and bandages were applied. COMPLICATIONS: None DISPOSITION / PLANS: The patient was placed in a supine position and transferred to the recovery area in a stable condition for observation. There was no evidence of lower extremity motor or sensory deficit after the procedure. Patient was discharged from the recovery room after meeting discharge criteria. Home discharge instructions were given to the patient by the staff. The patient was reexamined prior to discharge. The patient will schedule a follow up in the clinic in 2-4 weeks.
--- NOTE | 2018-06-16 11:59 | FL ---
EXAMINATION TYPE: FL guided pain mgmt statistic DATE OF EXAM: 06/16/2018 CLINICAL HISTORY: Low back pain. TECHNIQUE: Fluoroscopy. COMPARISON: None. FINDINGS: Fluoroscopic guidance was provided during pain relief procedure performed by Dr. Fong . A total of 9 seconds of fluoroscopic time was utilized during the procedure and 1 spot images are acquired. Image acquired shows needle localization of the lumbar spine. IMPRESSION: As Above.
[2018-06-16 15:48] VITALS: BP 114/67; PULSE 64; TEMP 97.4
[2018-06-16] MEDS: SODIUM CHLORIDE 0.9% 1,000 ML IV SCH (15:59)
--- NOTE | 2018-06-16 16:11 | P.DS ---
Providers Date of admission: 06/13/18 16:31 Expected date of discharge: 06/16/18 Attending physician: Etienne Davis Consults: 06/13/18 16:33 Consult Physician Routine Consulting Provider: Toni Monaco Consult Reason/Comments: Intractable back pain Do you want consulting provider notified?: Yes 06/14/18 10:34 Consult to Anesthesia Routine Consulting Provider: Anesthesia,Services Consult Reason/Comments: HNP L4/5 L5/S1, for possible ESInjections Primary care physician: Etienne Davis [facility] Course: 32-year-old male was admitted to the emergency room with intractable back pain was found to have lumbar radiculopathy. Patient was evaluated by orthopedics Dr. Monaco and then evaluated by Dr. Fong who did steroid injection of the back in the OR. Patient states some relief. Patient is to follow-up with the neurosurgeon and Dr. Fong in 2-4 weeks. Family physician follow-up Dr. James mechanical back pain lumbar radiculopathy herniated disc L45 with stenosis Failed outpatient History hypertension GERD Plan Patient will follow-up with Orthopedics Dr. Monaco Follow-up with Dr. Fong Follow-up with family physician Dr. Etienne Davis Patient Condition at Discharge: Stable Plan - Discharge Summary Discharge Rx Participant: No New Discharge Prescriptions: New Gabapentin [Neurontin] 100 mg PO BID 7 Days #14 cap Continue Metoprolol Tartrate [Lopressor] 50 mg PO HS Metoprolol Tartrate [Lopressor] 100 mg PO DAILY Fexofenadine HCl [Nu Allergy] 180 mg PO DAILY methylPREDNISolone [Medrol Dose Pack] See Taper PO DIRECTED Pantoprazole Sodium 40 mg PO BID Discharge Medication List Fexofenadine HCl [Nu Allergy] 180 mg PO DAILY 04/09/18 [History] Metoprolol Tartrate [Lopressor] 50 mg PO HS 04/09/18 [History] Metoprolol Tartrate [Lopressor] 100 mg PO DAILY 04/09/18 [History] Pantoprazole Sodium 40 mg PO BID 06/13/18 [History] methylPREDNISolone [Medrol Dose Pack] See Taper PO DIRECTED 06/13/18 [History ] Gabapentin [Neurontin] 100 mg PO BID 7 Days #14 cap 06/16/18 [Rx] Follow up Appointment(s)/Referral(s): Etienne Davis MD [Primary Care Provider] - 1-2 days Toni Monaco DO [Doctor of Osteopathic Medicine] - 2 Weeks (Patient may follow up with Bradley Hou PA-C or Dr. Dickson Monaco at [facility] in approximately 2-3 weeks for further evaluation.)
== END 2018-06-16 18:51 | disposition home or self-care (01) ==
LOC: EC 11:07 → 1SOBS 16:31
PROVIDERS: ADMIT Family Medicine; ATTEND Family Medicine
DX: M51.16 Intervertebral disc disorders with radiculopathy, lumbar region (principal); M51.17 Intervertebral disc disorders with radiculopathy, lumbosacral region; K21.9 Gastro-esophageal reflux disease without esophagitis; I10 Essential (primary) hypertension; R00.0 Tachycardia, unspecified; Z79.899 Other long term (current) drug therapy; Z79.52 Long term (current) use of systemic steroids; Z91.018 Allergy to other foods; Z80.8 Family history of malignant neoplasm of other organs or systems; Z82.49 Family history of ischemic heart disease and other diseases of the circulatory system; Z83.2 Family history of diseases of the blood and blood-forming organs and certain disorders involving the immune mechanism
CPT/HCPCS: 96375 ×2; 96376 ×4; 96374; 99284; 36415; 97162; 80053; 80048; 83735; 85025; 72125; 72131; 70450; 72148; 62323; G0378 ×4; J1030; J2360; J2920 ×4; J2930; J2405; J3010; J1885; J1170 ×2; Q9966; 99152

== ENCOUNTER 2018-06-17 08:32 | Emergency (ER) | payer BC ==
[2018-06-17 08:47] VITALS: TEMP 98.1
--- NOTE | 2018-06-17 08:47 | ED ---
General Adult HPI - General Chief complaint: Extremity Injury, Lower Stated complaint: back pain Source: patient Limitations: no limitations - Related Data Home Medications Medication Instructions Recorded Confirmed Fexofenadine HCl [Nu Allergy] 180 mg PO DAILY 04/09/18 06/17/18 Metoprolol Tartrate [Lopressor] 50 mg PO HS 04/09/18 06/17/18 Metoprolol Tartrate [Lopressor] 100 mg PO DAILY 04/09/18 06/17/18 Pantoprazole Sodium 40 mg PO BID 06/13/18 06/17/18 Previous Rx's Medication Instructions Recorded Gabapentin [Neurontin] 100 mg PO BID 7 Days #14 cap 06/16/18 Allergies Allergy/AdvReac Type Severity Reaction Status Date / Time soy Allergy Unknown Verified 06/17/18 08:56 wheat AdvReac Mild Unknown Verified 06/17/18 08:56 Review of Systems ROS Statement: Those systems with pertinent positive or pertinent negative responses have been documented in the HPI. ROS Other: All systems not noted in ROS Statement are negative. Past Medical History Past Medical History: GERD/Reflux, Hypertension Additional Past Medical History / Comment(s): OCCASIONAL TACHYCARDIA , had egd w / bx 10 had hx of some difficulty swallowing, pt stated he has eosinophilic esophagitis, hiatal hernia.Herniated Disk, "boarderline fatty liver ", concussion when younger. pt stated the his dad, grandfather and brother have a hereditary blood clotting disorder , but pt was never tested for it. History of Any Multi-Drug Resistant Organisms: None Reported Past Surgical History: No Surgical Hx Reported Additional Past Surgical History / Comment(s): egd w/bx 04-09-18 Past Anesthesia/Blood Transfusion Reactions: No Reported Reaction Additional Past Anesthesia/Blood Transfusion Reaction / Comment(s): first anesthesia was with egd Past Psychological History: No Psychological Hx Reported Smoking Status: Never smoker Past Alcohol Use History: None Reported Past Drug Use History: None Reported - Past Family History Mother Family Medical History: Cancer Additional Family Medical History / Comment(s): SKIN CANCER Father Family Medical History: Blood Disorder, Cancer, Deep Vein Thrombosis (DVT) Additional Family Medical History / Comment(s): SKIN CANCER , "hereditary clotting factor disorder"(dad, grand father and brother have it) pt has never been tested for it General Exam Limitations: no limitations Course Vital Signs 06/17/18 06/17/18 06/17/18 08:44 09:00 09:30 Temperature 98.1 F Pulse Rate 71 63 67 Respiratory 18 18 19 Rate Blood Pressure 129/76 129/76 120/70 O2 Sat by Pulse 98 97 98 Oximetry Medical Decision Making - Medical Decision Making Dictation was produced using [employer] dictation software. please excuse any grammatical, word or spelling errors. Chief Complaint: 32-year-old male past medical history of chronic back pain presents with persistent pain. History of Present Illness: 5-year-old male. He was recently admitted to the emergency department for intractable back pain. Patient was found to have lumbar radiculopathy with herniated disc L4 to 5 with severe stenosis. He is told that he would require spinal surgery. Patient was seen by the spinal surgeon and pain specialist. He did receive epidural injection. He did have some relief. He was just discharged yesterday. He woke up this morning had severe recurrent symptoms. Patient states he did have some numbness and tingling from bilateral knees down. Called EMS and was brought to the emergency department. MRI was performed during his admission stay. Patient did have findings of broad-based disc protrusion with L4 5 mild central canal stenosis and bilateral foraminal stenosis. he denies any constitutional symptoms. He complains of paresthesias to bilateral lower extremities. The ROS documented in this emergency department record has been reviewed and confirmed by me. Those systems with pertinent positive or negative responses have been documented in the HPI. All other systems are other negative and/or noncontributory. PHYSICAL EXAM: General Impression: Alert and oriented x3, acute distress secondary to pain HEENT: Normocephalic atraumatic, extra-ocular movements intact, pupils equal and reactive to light bilaterally, mucous membranes moist. Cardiovascular: Heart regular rate and rhythm, S1&S2 audible, no murmurs, rubs or gallops Chest: Lungs clear to auscultation bilaterally, no rhonchi, no wheeze, no rales Abdomen: Bowel sounds present, abdomen soft, non-tender, non-distended, no organomegaly Musculoskeletal: Pulses present and equal in all extremities, no peripheral edema, patient unable to tolerate straight leg test due to severe pain Motor: no focal deficits noted Neurological: CN II-XII grossly intact, no focal motor or sensory deficits noted Skin: Intact with no visualized rashes Psych: Normal affect and mood ED course: 32 yo male with recently diagnosed severe herniated disc presents with acute onset back pain 1 day. Patient was recently admitted was found have severe disc herniations. He was evaluated by a pain specialist and orthopedic spine surgeon reduced with a would require spinal surgery. Patient case discussed with Dr. Monaco from neurosurgery who is aware patient. Patient did request transfer to [facility] for second opinion. Discussed patient case with Dr. Carolina from [facility] was aware of patient. he' ll be transferred via ambulance. At this point there is no concerning clinical findings of conus medullaris versus cauda equina syndrome. - Lab Data Result diagrams: 06/17/18 09:05 06/17/18 09:05 Lab Results 06/17/18 06/17/18 Range/Units 09:05 09:05 WBC 17.3 H (3.8-10.6) k/uL RBC 5.00 (4.30-5.90) m/uL Hgb 15.4 (13.0-17.5) gm/dL Hct 44.2 (39.0-53.0) % MCV 88.3 (80.0-100.0) fL MCH 30.8 (25.0-35.0) pg MCHC 34.9 (31.0-37.0) g/dL RDW 12.3 (11.5-15.5) % Plt Count 317 (150-450) k/uL Neutrophils % 68 % Lymphocytes % 24 % Monocytes % 6 % Eosinophils % 1 % Basophils % 0 % Neutrophils # 11.8 H (1.3-7.7) k/uL Lymphocytes # 4.1 (1.0-4.8) k/uL Monocytes # 1.0 (0-1.0) k/uL Eosinophils # 0.2 (0-0.7) k/uL Basophils # 0.0 (0-0.2) k/uL Sodium 141 (137-145) mmol/L Potassium 4.0 (3.5-5.1) mmol/L Chloride 109 H (98-107) mmol/L Carbon Dioxide 25 (22-30) mmol/L Anion Gap 7 mmol/L BUN 22 H (9-20) mg/dL Creatinine 0.79 (0.66-1.25) mg/dL Est GFR (CKD-EPI)AfAm >90 (>60 ml/min/1.73 sqM) Est GFR (CKD-EPI)NonAf >90 (>60 ml/min/1.73 sqM) Glucose 99 (74-99) mg/dL Calcium 9.1 (8.4-10.2) mg/dL Disposition Clinical Impression: Back pain Disposition: OTHER INSTITUTION NOT DEFINED Condition: Fair Referrals: Etienne Davis MD [Primary Care Provider] - 1-2 days Time of Disposition: 10:18 - Out of Hospital Transfer - Req. Specs Out of Hospital Transfer - Requested Specifics: Other Emergency Center ( [facility])
[2018-06-17 09:24] LABS: Basophils % (A) 0 %; Eosinophils # (A) 0.2 k/uL (0-0.7); Eosinophils % (A) 1 %; HCT 44.2 % (39.0-53.0); HGB 15.4 gm/dL (13.0-17.5); Lymphocytes # (A) 4.1 k/uL (1.0-4.8); Lymphocytes % (A) 24 %; MCH 30.8 pg (25.0-35.0); MCHC 34.9 g/dL (31.0-37.0); MCV 88.3 fL (80.0-100.0); Mean Platelet Volume 7.5; Monocytes % (A) 6 %; Neutrophils # (A) 11.8 k/uL (1.3-7.7); Neutrophils % (A) 68 %; Platelet Count 317 k/uL (150-450); RDW 12.3 % (11.5-15.5); WBC 17.3 k/uL (3.8-10.6)
[2018-06-17 09:40] LABS: Anion Gap 7 mmol/L; Blood Urea Nitrogen 22 mg/dL (9-20); Calcium 9.1 mg/dL (8.4-10.2); Carbon Dioxide 25 mmol/L (22-30); Chloride 109 mmol/L (98-107); Glucose 99 mg/dL (74-99); Sodium 141 mmol/L (137-145)
[2018-06-17 10:37] VITALS: BP 118/76; PULSE 64; RESP 18
== END 2018-06-17 11:23 | disposition other institution (70) ==
LOC: EC 08:32
DX: M54.9 Dorsalgia, unspecified (principal); M51.26 Other intervertebral disc displacement, lumbar region; R20.0 Anesthesia of skin; K21.9 Gastro-esophageal reflux disease without esophagitis; I10 Essential (primary) hypertension; Z98.890 Other specified postprocedural states; Z79.899 Other long term (current) drug therapy; Z91.018 Allergy to other foods
CPT/HCPCS: 36415; 80048; 85025; 99284